=== PATIENT | female | born 1990 | race African-American/Black ===

== ENCOUNTER 2020-09-03 16:55 | Emergency (ER) | payer MEDICAID ==
[~2020-09-03] VITALS: Ht 170.2 cm; Wt 167.8 kg
[2020-09-03] MEDS ORDERED: NORCO 5-325 TA1 EAC1 ORAL (18:02)
--- NOTE | 2020-09-03 18:12 | Emergency Room Report ---
History of Present Illness General Chief Complaint: Lower Extremity Injury Source: Patient Present Illness HPI Patient is a 30-year-old female who presents after injury to her left lower extremity. Reports having injury several days ago and had previous imaging performed at hospital on denies any fever. Reports having Diane. Pain to the left lower extremity. Worse with movement. Had improvement in swelling over time. Reports having persistent pain worse with movement. Had imaging studies performed on her foot and of her hand. Also had CT of the head and C- spine for facility. 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 COVID-19 Screening: Negative COVID-19 COVID-19 Testing Source: nasal Patient History Past Medical History: see triage record Now: No Reviewed Nursing Documentation: PMH: Agreed; PSxH: Agreed Nursing Documentation-PMH Past Medical History: No Stated History Review of Systems All Other Systems: negative except mentioned in HPI Physical Exam Vital Signs Date Time Temp Pulse Resp B/P (MAP) Pulse Ox O2 Delivery O2 Flow Rate FiO2 09/03/20 17:03 98.4 85 18 121/69 (86) 99 Room Air General Appearance: well appearing, no apparent distress, alert, GCS 15 Head: normocephalic, atraumatic ENT: hearing grossly normal, normal voice Neck: full range of motion, supple Respiratory: no respiratory distress, speaking full sentences Gastrointestinal: normal inspection, normal bowel sounds, non tender, soft Musculoskeletal: no calf tenderness Neurologic: alert, motor strength/tone normal, 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, oriented x3, normal gait Psychiatric: mood/affect normal Skin: no rash Medical Decision Making Diagnostic Impression: Primary Impression: Contusion of leg, left Additional Impressions: Abrasion Finger fracture, left Last Vital Signs Date Time Temp Pulse Resp B/P (MAP) Pulse Ox O2 Delivery O2 Flow Rate FiO2 09/03/20 17:03 98.4 85 18 121/69 (86) 99 Room Air Disposition: HOME, SELF-CARE Condition: Stable Scripts Hydrocodone Bit/Acetaminophen 5-325* (NORCO 5-325 TABLET*) 1 Each Tablet 1 TAB ORAL Q6H PRN for FOR PAIN, #10 TAB 0 Refills Prov: Brian Weston MD 09/03/20 Referrals: [facility],REFERRING (PCP) Patient Instructions: Contusion Brian Weston MD Sep 03, 2020 18:12
[2020-09-03 18:41] VITALS: BP 121/69
--- NOTE | 2020-09-03 18:41 | NUR ---
ER DISCHARGE NOTE: Patient is cleared to be discharged per ERMD, pt is aox4, on room air, with stable vital signs. pt was given dc and prescription instructions, pt was able to verbalize understanding, pt id band removed. pt is able to ambulate with steady gait. pt took all belongings.
== END 2020-09-03 18:41 | disposition home or self-care (01) ==
LOC: EMR 17:28
DX: S80.12XA Contusion of left lower leg, initial encounter (principal); S62.609A Fracture of unspecified phalanx of unspecified finger, initial encounter for closed fracture; T14.8XXA Other injury of unspecified body region, initial encounter; X58.XXXA Exposure to other specified factors, initial encounter; Y92.9 Unspecified place or not applicable
CPT/HCPCS: 99282